=== PATIENT | female | born 1995 | race Caucasian/White ===

== ENCOUNTER → 2018-05-05 11:37 | Outpatient (CLI) | payer MEDICAID, SELFPAY ==
[2018-05-05 12:24] LABS: Abs Immature Grans 0.03 k/cumm (0.0-0.09); Absolute Basophil Count 0.01 k/cumm (0.0-0.2); Absolute Eosinophil Count 0.06 k/cumm (0.0-0.7); Absolute Lymphocyte Count 2.14 k/cumm (1.2-3.4); Absolute Monocyte Count 0.61 k/cumm (0.11-0.7); Absolute Neutrophil Count 6.95 k/cumm (1.2-6.7); Basophils % 0.1; Eosinophils % 0.6; HCT 39.3 % (36.0-46.0); HGB 13.6 g/dL (12.0-15.5); Immature Grans % 0.3; Lymphocytes % 21.8; Mean Corp. HGB Concentration 34.6 g/dL (32.0-36.0); Mean Corpuscular Hemoglobin 29.5 pg (27.0-33.0); Mean Corpuscular Volume 85.2 fL (80-95); Mean Platelet Volume 10.8 fL (8.0-11.0); Monocytes % 6.2; Platelet Count 281 x1000/uL (130-400); RBC 4.61 m/cumm (4.00-5.20); RBC Distribution Width 13.4 % (11.7-14.6)
[2018-05-06 11:21] LABS: Hepatitis C Ab w Rflx HCV PCR Negative (NEGAT)
[2018-05-06 11:30] LABS: Rubella IgG Ab (UVM) Positive; Syphilis Serology (RPR) Negative (Negative)
[2018-05-06 11:45] LABS: Hepatitis B Surface Ag Negative (NEGAT)
[2018-05-06 11:48] LABS: HIV-1/2 Ag & Ab Screen Negative (NEGAT)
== END ==
PROVIDERS: PCP Family Medicine; Visit Provider Advanced Practice Midwife
DX: Z34.91 Encounter for supervision of normal pregnancy, unspecified, first trimester (principal)
CPT/HCPCS: 36415; 80055; 86850; 86900; 86901

== ENCOUNTER → 2018-05-05 12:02 | Outpatient (REF) | payer MEDICAID, SELFPAY ==
[2018-05-05 13:55] LABS: *AMPHETAMINES SCREEN URINE Negative (Negative); *BARBITURATES SCREEN URINE Negative (Negative); *BENZODIAZEPINES SCREEN URINE Negative (Negative); Cannabinoids THC Negative (Negative); Cocaine Screen,Urine Negative (Negative); METHADONE URINE SCREEN Negative (Negative); OPIATES URINE SCREEN Negative (Negative)
[2018-05-05 13:58] LABS: Tricyclic Antidepressants Negative (Negative)
[2018-05-06 14:36] LABS: Chlamydia Result Negative; GC Result Negative; Specimen Description CERVIX
[2018-05-10 17:08] LABS: Buprenorphine Negative; Norbuprenorphine Negative
== END ==
LOC: LBN 12:02
PROVIDERS: PCP Family Medicine; Visit Provider Advanced Practice Midwife
DX: Z34.91 Encounter for supervision of normal pregnancy, unspecified, first trimester (principal); Z11.3 Encounter for screening for infections with a predominantly sexual mode of transmission
CPT/HCPCS: 80307; 87491; 87591; 87086

== ENCOUNTER 2018-06-06 00:32 | Outpatient (CLI) | payer MEDICAID, SELFPAY ==
--- NOTE | 2018-06-06 14:35 | DI.US_ITS ---
Many abnormalities cannot be diagnosed. A normal exam does not exclude a congenital anomaly. Radiology No. LMP: Exam Date: 06/06/18 [facility] 10 wks days on 04/11/18 EDC ([facility]) 11/07/18 Confirmed: HISTORY: SURVEY, Z34.90 ---- PREDICTED GESTATIONAL AGE NUMBER 18 weeks with a range of 17 week to 19 weeks. 1 Determined by_X__1STUS___LMP___HISTORY Info. pertaining to fetus # PLACENTA PRESENTATION Grade 0-1 Cephalic___ Anterior_X__Posterior___ Breech____ Right Left Transverse(head right___ Fundal___Low-lying___Previa___ Transverse(head left___ Varying__X____ BIOMETRY AMNIOTIC FLUID BPD: 44 mm 19.2 weeks Normal HC: 158 mm 18.5 weeks AC: 125 mm 18.1 weeks FL: 27 mm 18 weeks AMNIOTIC FLUID INDEX >26 WK CRL: mm weeks Cisterna Magna: 4 mm CI: 0.85 RUQ: LUQ Cerebellum: 1.9 cm EFW: 227 grams Percentile RLQ: LLQ Total: cms Composite AGE= 18.4 wks EDC by US___11/03/18 BIOPHYSICAL PROFILE ANATOMY IDENTIFIED SCORE 0/2 Heart: 4-Chamber_X__Rate:BPM___163__ LVOT: X_ RVOT: X___ Amniotic Fluid(>2cms)____ Stomach:__X Kidneys:___X____ Respirations (>30 secs) Bladder:___X Post. Fossa: Body Flex/Extension 3 vessel cord:____X___Ventricles: X cord insertion:___X__ Lips:___NS_ Extremity Flex/Extension spinal morphology:____X____Nose:NS Total Score= Palate:__X NS=not seen Please see the OB ultrasound worksheet for complete details. The patient is returning on 06/20/18 for completion of survey.
[2018-06-09 08:43] LABS: Calculated age at EDD 20 years; Cigarette smoking status non-smoker; GA used in risk estimate Scan estimate; INHIBIN 228 pg/mL; IVF Pregnancy No; Initial or repeat testing Initial testing; Insulin dependent diabetes No; Maternal Weight 138 lbs; Number of Fetuses 1; Physician Phone Number 802-748-7300; Prev Down(T21)/Trisomy Pregnan No; Prev Pregnancy w/NTD No; RECOMMENDED FOLLOW UP None.; Results Summary Normal risk; hCG, TOTAL 33.7 IU/mL; hCG, TOTAL MoM 1.41 MoM; uE3 1.36 ng/mL; uE3 MoM 0.98 MoM
[2018-06-12 17:02] LABS: Result Summary NEGATIVE; Specimen WB Whole Blood
== END 2018-06-06 00:52 ==
PROVIDERS: Advanced Practice Midwife; PCP Family Medicine; Visit Provider Advanced Practice Midwife
DX: Z34.82 Encounter for supervision of other normal pregnancy, second trimester (principal); Z13.228 Encounter for screening for other metabolic disorders; Z36.89 Encounter for other specified antenatal screening
CPT/HCPCS: 36415; 76805; 81511; 81220

== ENCOUNTER 2018-06-13 00:46 | Outpatient (CLI) | payer MEDICAID, SELFPAY ==
--- NOTE | 2018-06-13 06:59 | DI.US_ITS ---
Many abnormalities cannot be diagnosed. A normal exam does not exclude a congenital anomaly. Radiology No. LMP: Exam Date: 06/13/18 [facility] wks days on EDC ([facility]) Confirmed: HISTORY: VISUALIZE LIPS AND NOSE, CALL BACK, F/U SURVEY ---- PREDICTED GESTATIONAL AGE NUMBER weeks with a range of week to weeks. 1 Determined by___1STUS___LMP___HISTORY Info. pertaining to fetus # PLACENTA PRESENTATION Grade Cephalic___ Anterior___Posterior___ Breech__X__ Right Left Transverse(head right___ Fundal___Low-lying___Previa___ Transverse(head left___ Varying BIOMETRY AMNIOTIC FLUID BPD: mm weeks Normal HC: mm weeks Oligo Polyhydramnios AC: mm weeks FL: mm weeks AMNIOTIC FLUID INDEX >26 WK CRL: mm weeks Cisterna Magna: mm CI: RUQ: LUQ Cerebellum: cm EFW: grams Percentile RLQ: LLQ Total: cms Composite AGE= wks EDC by US BIOPHYSICAL PROFILE ANATOMY IDENTIFIED SCORE 0/2 Heart: 4-Chamber___Rate:BPM LVOT: RVOT: Amniotic Fluid(>2cms)____ Stomach: Kidneys: Respirations (>30 secs) Bladder: Post. Fossa: Body Flex/Extension 3 vessel cord: Ventricles: cord insertion: Lips:____X Extremity Flex/Extension spinal morphology: Nose:X Total Score= Palate:_X NS=not seen There is a single intrauterine gestation. The lips, nose and palate were visualized and are unremarkable. The fetus is in the breech position.
== END 2018-06-13 01:06 ==
PROVIDERS: PCP Family Medicine; Visit Provider Advanced Practice Midwife
DX: Z34.82 Encounter for supervision of other normal pregnancy, second trimester (principal)
CPT/HCPCS: 76815

== ENCOUNTER 2018-08-17 07:50 | Outpatient (CLI) | payer MEDICAID, SELFPAY ==
[2018-08-17 08:26] LABS: Glucose,1 Hr (Glucola) 117 mg/dL (80-140)
== END 2018-08-17 08:10 ==
PROVIDERS: PCP Family Medicine; Visit Provider Advanced Practice Midwife
DX: Z34.93 Encounter for supervision of normal pregnancy, unspecified, third trimester (principal)
CPT/HCPCS: 36415; 82950

== ENCOUNTER 2018-09-14 10:40 | Outpatient (CLI) | payer MEDICAID, SELFPAY | END 2018-09-14 11:00 | PROVIDERS: PCP Nurse Practitioner Family; Visit Provider Advanced Practice Midwife | DX: R69 Illness, unspecified (principal) | CPT/HCPCS: 36415; 80076; 82239 ==

== ENCOUNTER 2018-09-26 07:28 | Outpatient (CLI) | payer MEDICAID, SELFPAY ==
[2018-09-26 08:29] LABS: ALT 25 U/L (12-78); AST 20 U/L (15-37); Albumin 2.1 g/dL (3.4-5.0); Alkaline Phosphatase 216 U/L (46-116); Bilirubin, Direct 0.08 mg/dL (0.00-0.20); Bilirubin, Total 0.2 mg/dL (0.2-1.0); Total Protein 5.8 g/dL (6.4-8.2)
[2018-09-27 16:19] LABS: Bile Acids, Total 4 mcmol/L (<=10)
== END 2018-09-26 07:48 ==
PROVIDERS: PCP Nurse Practitioner Family; Visit Provider Advanced Practice Midwife
DX: Z34.93 Encounter for supervision of normal pregnancy, unspecified, third trimester (principal)
CPT/HCPCS: 36415; 80076; 82239

== ENCOUNTER 2018-10-12 13:33 | Outpatient (REF) | payer MEDICAID, SELFPAY | END 2018-10-12 13:53 | LOC: LBN 13:33 | PROVIDERS: PCP Nurse Practitioner Family; Visit Provider Advanced Practice Midwife | DX: Z34.93 Encounter for supervision of normal pregnancy, unspecified, third trimester (principal); Z36.85 Encounter for antenatal screening for Streptococcus B | CPT/HCPCS: 87081 ==

== ENCOUNTER 2018-10-22 04:15 | Inpatient (IN) | payer MEDICAID, SELFPAY ==
[2018-10-22 05:59] LABS: HCT 43.9 % (36.0-46.0); HGB 15.5 g/dL (12.0-15.5); Mean Corp. HGB Concentration 35.3 g/dL (32.0-36.0); Mean Corpuscular Hemoglobin 31.5 pg (27.0-33.0); Mean Corpuscular Volume 89.2 fL (80-95); Platelet Count 163 x1000/uL (130-400); RBC 4.92 m/cumm (4.00-5.20); RBC Distribution Width 13.6 % (11.7-14.6); White Blood Cell Count 9.96 k/cumm (4.4-10.8)
[2018-10-22] MEDS: Lactated Ringers 1,000 ML 125 ML IV ×2 (06:41→08:30)
[2018-10-22] MEDS: fentaNYL 100 MCG/2 ML VIAL EP (08:35)
[2018-10-22] MEDS: Hamamelis Leaf/Glycerin 100 EACH BOX PR (14:52)
[2018-10-22] MEDS: Acetaminophen 325 MG TAB 650 MG PO (16:52)
[2018-10-22] MEDS: Ibuprofen 600 MG TAB PO (16:53)
[2018-10-23] MEDS: Acetaminophen 325 MG TAB 650 MG PO ×5 (00:19→21:29)
[2018-10-23] MEDS: Ibuprofen 600 MG TAB PO ×4 (00:19→21:28)
[2018-10-23] MEDS: Docusate Sodium 100 MG CAP PO ×2 (00:20→12:06)
[2018-10-23 07:34] LABS: HCT 36.6 % (36.0-46.0); HGB 12.4 g/dL (12.0-15.5); Mean Corp. HGB Concentration 33.9 g/dL (32.0-36.0); Mean Corpuscular Volume 91.5 fL (80-95); Mean Platelet Volume 12.2 fL (8.0-11.0); Platelet Count 133 x1000/uL (130-400); RBC Distribution Width 13.5 % (11.7-14.6); White Blood Cell Count 10.67 k/cumm (4.4-10.8)
[2018-10-24] MEDS: Acetaminophen 325 MG TAB 650 MG PO ×2 (09:11→22:55)
[2018-10-24] MEDS: Hamamelis Leaf/Glycerin 100 EACH BOX PR (09:11)
[2018-10-24] MEDS: Ibuprofen 600 MG TAB PO ×2 (09:12→22:56)
[2018-10-25] MEDS: Acetaminophen 325 MG TAB 650 MG PO ×2 (05:36→13:43)
[2018-10-25] MEDS: Ibuprofen 600 MG TAB PO ×2 (05:37→13:43)
== END 2018-10-25 14:20 | disposition home or self-care (01) | DRG 807 ==
PROVIDERS: Admitting Provider Advanced Practice Midwife; PCP Nurse Practitioner Family; Visit Provider Advanced Practice Midwife
DX: O70.1 Second degree perineal laceration during delivery (principal); Z37.0 Single live birth; O69.1XX0 Labor and delivery complicated by cord around neck, with compression, not applicable or unspecified; Z3A.37 37 weeks gestation of pregnancy; O99.824 Streptococcus B carrier state complicating childbirth
CPT/HCPCS: 36415; 85027; 86850; 86900; 86901; G0378; J2540; J3010

== ENCOUNTER 2018-12-06 12:56 | Outpatient (REF) | payer MEDICAID, SELFPAY ==
--- NOTE | 2018-12-06 10:40 | PAPFT_PTH ---
PATIENT: Whitley Dillon LOC: [facility] U#:[id number] AGE/SX: 23/F ROOM: RE12/06/[address]: Dede Herrera : 1995 BED: DIS: 12/06/2018 SPEC #: [id number] RECD: 12/06/18 17:58 STATUS: LINA REQ #: [id number] TONYA: 12/06/18 10:[address]: Dede Herrera DEPT: [facility] Cytology RECD BY: Linda Mendez ENTERED: 12/06/18 17:58 SP TYPE: PAPFT OTHR DR: Jo Ann Oglesby Tissues: 1 - CX/ENDOCX FOR PAP SMEARS Procedures: PAP THIN PREP/[facility] Screening Comments: [id number]
== END 2018-12-06 13:16 ==
LOC: LBN 12:56
PROVIDERS: PCP Nurse Practitioner Family; Visit Provider Advanced Practice Midwife
DX: Z12.4 Encounter for screening for malignant neoplasm of cervix (principal)
CPT/HCPCS: 88142

== ENCOUNTER 2019-10-16 11:30 | Outpatient (CLI) | payer MEDICAID, SELFPAY ==
--- NOTE | 2019-10-16 10:04 | DI.RAD_ITS ---
EXAM: XR SACRUM COCCYX INDICATION: COCCYDYNIA M53.3, WORSE WHEN GOING FROM SITTING TO STANDING INTERMITTENTLY. COMPARISON: No exams were available for comparison TECHNIQUE: 2D digital imaging was performed. FINDINGS: No fracture or bony erosions are seen. SI joints are not widened. Hip joints appear normal. IMPRESSION: Negative sacrum and coccyx.
== END 2019-10-16 11:50 ==
PROVIDERS: PCP Nurse Practitioner Family; Visit Provider Nurse Practitioner Family
DX: M53.3 Sacrococcygeal disorders, not elsewhere classified (principal)
CPT/HCPCS: 72220

== ENCOUNTER 2022-10-19 11:18 | Outpatient (REF) | payer MEDICAID, SELFPAY ==
--- NOTE | 2022-10-19 09:50 | PAPFT_PTH ---
PATIENT: Whitley Dillon LOC: [facility] U#:[id number] AGE/SX: 26/F ROOM: RE10/19/[address]: Coretta Jimenez NP : 1995 BED: DIS: 10/19/2022 SPEC #: [id number] RECD: 10/19/22 12:54 STATUS: LINA MASCORRO #: [id number] TONYA: 10/19/22 09:[address]: Coretta Jimenez NP DEPT: [facility] Cytology RECD BY: Linda Mendez Tissues: 1 - CX/ENDOCX FOR PAP SMEARS Procedures: PAP THIN PREP/[facility] Screening Comments: [id number]
== END 2022-10-19 11:19 | disposition home or self-care (01) ==
LOC: LBN 11:18
PROVIDERS: Visit Provider Nurse Practitioner Women's Health
DX: Z12.4 Encounter for screening for malignant neoplasm of cervix (principal)
CPT/HCPCS: 88142

== ENCOUNTER 2024-06-05 08:56 | Outpatient (CLI) | payer MEDICAID, SELFPAY ==
[2024-06-05 10:01] LABS: HCG Quant, Pregnancy 22 mIU/mL (1-3)
== END 2024-06-05 08:57 | disposition home or self-care (01) ==
LOC: LBO 08:58
PROVIDERS: Visit Provider Advanced Practice Midwife
DX: O20.0 Threatened abortion (principal)
CPT/HCPCS: 36415; 84702

== ENCOUNTER 2024-06-07 03:04 | Outpatient (CLI) | payer MEDICAID, SELFPAY ==
[2024-06-07 11:39] LABS: HCG Quant, Pregnancy 4 mIU/mL (1-3)
== END 2024-06-07 03:05 | disposition home or self-care (01) ==
LOC: LBO 03:04
PROVIDERS: Visit Provider Advanced Practice Midwife
DX: O20.0 Threatened abortion (principal)
CPT/HCPCS: 36415; 84702

== ENCOUNTER 2024-08-21 15:57 | Outpatient (REF) | payer MEDICAID, SELFPAY ==
[2024-08-22 11:09] LABS: Chlamydia Result Negative (Negative); GC Result Negative (Negative)
== END 2024-08-21 15:58 | disposition home or self-care (01) ==
LOC: NCHCN 15:57
PROVIDERS: Visit Provider Physician Assistant
DX: M53.3 Sacrococcygeal disorders, not elsewhere classified (principal)
CPT/HCPCS: 87491; 87591

== ENCOUNTER 2025-05-06 19:33 | Emergency (ER) | payer MEDICAID, SELFPAY ==
[2025-05-06 19:37] VITALS: BP 136/87; PULSE 77; RESP 16; TEMP 37; O2SAT 98
--- NOTE | 2025-05-06 19:45 | DI.RAD_ITS ---
Exam(s) XR FOOT RT COMPLETE EXAM: XR FOOT RT COMPLETE CLINICAL HISTORY: pole fell on dorsal aspect of foot. TECHNIQUE: 2D digital imaging was performed. COMPARISON: No exams were available for comparison FINDINGS: 3 views No evidence of fracture or diastasis of the Lisfranc joint. Great toe metatarsophalangeal joint appears unremarkable as do the other articulations. No pes planus. No inferior calcaneal spur. No osseous tarsal coalition evident. Bone density normal. No osseous lesions. IMPRESSION: No significant osseous findings in the foot. DATA REPOSITORY: RADIATION DOSE DELIVERED:
[2025-05-06 21:21] VITALS: BP 130/80; PULSE 72; RESP 16; O2SAT 98
--- NOTE | 2025-05-06 21:32 | DI.VRAD_ITS ---
PROCEDURE INFORMATION: Exam: XR Right Foot Exam date and time: 05/06/2025 8:16 PM Age: 29 years old Clinical indication: Injury or trauma; Other: Pole fell on dorsal foot; Crushing; Right; Injury date: 05/06/25 TECHNIQUE: Imaging protocol: Radiologic exam of the right foot. Views: 3 or more views. COMPARISON: No relevant prior studies available. FINDINGS: Bones/joints: Normal. Soft tissues: Normal. IMPRESSION: No evidence for acute posttraumatic abnormality. Dictated and Authenticated by: Humaira Tay MD. Orderin Velvet Mckeon MD
--- NOTE | 2025-05-06 23:28 | ED.GENADUL_ITS ---
Discharge Plan Disposition Patient Disposition: Home Condition: Stable Discharge Details Clinical Impression: Contusion of foot Primary Care Provider: Unknown,Unknown ED Provider: Linda Verdin Home Meds and New Rx's Prescriptions: Continued cetirizine [Allergy Relief (cetirizine)] 10 mg tablet 10 mg PO DAILY sertraline 50 mg tablet 50 mg PO DAILY Discharge Instructions Instructions: Minor Contusion ED Additional Instructions: Your x-ray does not show evidence of acute abnormality I will call you if there is a discrepancy in the official read You do not need to wear your boot if there is not a fracture but for now keep it in place walking Take Motrin as needed for pain and you may apply ice HPI General Date/Time Provider Initiated Documentation: 05/06/25 19:56 . HPI Narrative: This 29-year-old female presents with report of pain to her right foot. She states a metal pole following just prior to arrival denies chance of . Reports some pain with walking. Related Data Home Medications ?Medication ?Instructions ?Recorded ?Confirmed cetirizine 10 mg tablet (Allergy 10 mg PO DAILY 05/06/25 Relief (cetirizine)) sertraline 50 mg tablet 50 mg PO DAILY 10/04/2304/20 Allergies Allergy/AdvReac Type Severity Reaction Status Date / Time No Known Allergies Allergy Unverified 05/06/25 19:39 General Stated Complaint: Orthopedic ALDO: 4 Exam Narrative Exam Narrative: Ecchymosis and tenderness over the dorsal aspect of the left no evidence of ankle involvement neurovascularly intact Course Vital Signs Vital signs: Vital Signs Temperature 37.0 C 05/06/25 19:37 Pulse 77 05/06/25 19:37 Respiratory Rate 16 05/06/25 19:37 Blood Pressure 136/87 05/06/25 19:37 Pulse Oximetry 98 05/06/25 19:37 Temperature 37.0 C 05/06/25 19:37 Temperature Source Oral 05/06/25 19:37 Pulse 72 05/06/25 21:21 Respiratory Rate 16 05/06/25 21:21 Blood Pressure 130/80 05/06/25 21:21 Blood Pressure Position Sitting 05/06/25 19:37 Pulse Oximetry 98 05/06/25 21:21 Oxygen Delivery Method Room Air 05/06/25 19:37 Oxygen Flow Rate 0 05/06/25 19:37 Medical Decision Making This 29-year-old female presents with injury to right dorsal aspect of foot. Is there is a bruise noted on assessment sustained X-ray of right foot was ordered and per radiology interpretation of my review there is no evidence of acute abnormality Patient encouraged to follow-up with primary care physician in 1 week with persistent pain she was given a boot for comfort Return precautions reviewed and patient expressed understanding PFSH All Active Problems (Updated 05/06/25 @ 21:06 by ROD Avila) Contusion of foot (Acute) Miscarriage, threatened, early (Acute) Axillary fullness (Acute) Medical History (Updated 05/06/25 @ 21:06 by ROD Avila) Depression Social History (Updated 10/19/22 @ 10:47 by Coretta Jimenez NP) Smoking/Tobacco Use Status: Never Smoking risk assessment performed?: Yes Alcohol Intake: current Alcohol Intake frequency: a few times a month Drug use: Never Substance use type: does not use Household members: children Number of Children: 1 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 Date GA/Weeks # Preg Succ Route Wgt Sex Labor Lgth Anesth esia Location Prov [facility] 10/22/18 37 No vaginal 3572.04 g Female 14 hrs. 12 min. Dede Herrera cnm Delivery Date: 10/22/18 Last Updated by: Coretta Noble
== END 2025-05-06 21:22 | disposition home or self-care (01) ==
PROVIDERS: Emergency Provider Physician Assistant
DX: S90.31XA Contusion of right foot, initial encounter (principal); W20.8XXA Other cause of strike by thrown, projected or falling object, initial encounter
CPT/HCPCS: 99283 ×2; 73630